=== PATIENT | female | born 1935 | race Caucasian/White ===

== ENCOUNTER 2017-06-27 11:42 | Inpatient (IN) | payer MEDICARE, MEDICAID ==
[~2017-06-27] VITALS: Ht 160 cm; Wt 90.3 kg
[2017-06-27 15:28] LABS: Basophils # (auto) 0.1 uL; Basophils % (auto) 0.6 % (0.0-2.0); Eosinophils # (auto) 0.2 uL; Eosinophils % (auto) 1.5 % (0.0-7.0); Hematocrit 41.9 % (36.0-46.0); Hemoglobin 13.8 g/dL (12.2-16.2); Lymphocytes % (auto) 14.5 % (10.0-50.0); Mean Corpuscular Hemoglobin 28.9 pg (28.0-32.0); Mean Corpuscular Hgb Conc. 32.9 g/dL (32.0-36.0); Mean Corpuscular Volume 87.8 fL (80.0-100.0); Monocytes # (auto) 0.9 uL; Monocytes % (auto) 6.8 % (0.0-12.0); Neutrophils # (auto) 10.3 uL; Neutrophils % (auto) 76.6 % (37.0-80.0); Nucleated Red Blood Cells % 0.2 %; Platelet Count (auto) 284 10^3/uL (140-450); Red Blood Cells 4.77 10^6/uL (4.0-5.20); Red Cell Distribution Width 15.2 % (11.8-14.3); White Blood Cell 13.5 10^3/uL (4.4-10.8)
[2017-06-27 15:41] LABS: BUN/Creatinine Ratio 16.8; Calcium 9.1 mg/dL (8.5-10.1); Potassium 4.6 mmol/L (3.5-5.1)
[2017-06-27] MEDS ORDERED: ENOXAPARIN SOD 100 MG/1 ML SYRINGE SC ONE (17:30)
[2017-06-27] MEDS ORDERED: ONDANSETRON HCL 4 MG/2 ML VIAL IV ONE (17:45)
[2017-06-27] MEDS ORDERED: MORPHINE SULFATE 4 MG/ML SYR/VIAL IV ONE (17:45)
[2017-06-27] MEDS ORDERED: XARELTO 20 MG PO SCH (18:00)
[2017-06-27] MEDS ORDERED: TEMAZEPAM 15 MG CAP PO PRN (18:45)
[2017-06-27] MEDS ORDERED: ACETAMINOPHEN 325 MG TAB PO PRN (18:45)
[2017-06-27] MEDS ORDERED: DOCUSATE SOD 100 MG CAP PO PRN (18:45)
[2017-06-27] MEDS ORDERED: DEXTROSE (50%) 50ML SYRG IV PRN (18:45)
[2017-06-27] MEDS ORDERED: ONDANSETRON HCL 4 MG/2 ML VIAL IV PRN (18:45)
[2017-06-27] MEDS: oxyCODONE ER 10 MG TAB PO SCH ×2 (18:46→19:50)
[2017-06-27 20:00] VITALS: BP 143/64
[2017-06-27] MEDS: ENOXAPARIN SOD 100 MG/1 ML SYRINGE SC SCH (21:45)
[2017-06-27] MEDS: MORPHINE SULFATE 4 MG/ML SYR/VIAL IV PRN (21:45)
[2017-06-27] MEDS: ASCORBIC ACID 500 MG TAB PO SCH (21:46)
[2017-06-27] MEDS: MEMANTINE HCL 5 MG TAB PO SCH (21:46)
[2017-06-27] MEDS: ATORVASTATIN 20 MG TAB PO SCH (21:46)
[2017-06-27] MEDS: FAMOTIDINE 20 MG TAB PO SCH (21:49)
[2017-06-27] MEDS ORDERED: ADVAIR DISKUS 250/50 IN SCH (22:00)
[2017-06-27 22:09] LABS: Urine Bacteria FEW /hpf (None Seen); Urine Blood Negative /uL (Negative); Urine Mucus FEW (None Seen); Urine WBC 3 /hpf (0 - 5)
[2017-06-27] MEDS: InsuLIN REG 1unit/0.01ml Soln (100units/ml) SC SCH (22:14)
[2017-06-27] MEDS: ACCU-CHEK COMFORT CURVE STRIP VI SCH (22:14)
[2017-06-27] MEDS: SODIUM CHLOR 0.9% PF (SALINE LOCK) 10ML VIAL IV SCH (22:15)
[2017-06-27] MEDS: IPRATROPIUM BROM 0.5 MG/2.5ML INH SOL NEB SCH (22:18)
[2017-06-27] MEDS: ALBUTEROL SULF 2.5 MG/0.5ML(0.5%) NEB SOLN NEB SCH (22:18)
[2017-06-27] MEDS: BUDESONIDE (INHALATION) 0.5 MG/2 ML NEB NEB SCH (22:19)
[2017-06-28] VITALS (7 sets, daily range): BP systolic 111–143; BP diastolic 48–84
[2017-06-28] MEDS: MORPHINE SULFATE 4 MG/ML SYR/VIAL IV PRN ×5 (01:49→19:48)
[2017-06-28] MEDS ORDERED: OXY10CRT PO (02:19)
[2017-06-28] MEDS ORDERED: TEMA30CA PO (02:27)
[2017-06-28] MEDS ORDERED: TIOTCAP IN (02:27)
[2017-06-28] MEDS ORDERED: MEMA10TA PO (02:27)
[2017-06-28] MEDS ORDERED: METO-169 PO (02:27)
[2017-06-28] MEDS ORDERED: SPIR25TA89 PO (02:27)
[2017-06-28] MEDS ORDERED: RIV20T PO (02:27)
[2017-06-28] MEDS ORDERED: ATOR10TA PO (02:27)
[2017-06-28] MEDS ORDERED: FLUT250M2 INH (02:27)
[2017-06-28] MEDS ORDERED: BENA10TA47 PO (02:27)
[2017-06-28] MEDS ORDERED: DOXE50CA57 PO (02:27)
[2017-06-28] MEDS ORDERED: OMEP20TA PO (02:27)
[2017-06-28] MEDS ORDERED: METF-370 PO (02:27)
[2017-06-28] MEDS: SODIUM CHLOR 0.9% PF (SALINE LOCK) 10ML VIAL IV SCH ×3 (05:54→22:11)
[2017-06-28] MEDS: InsuLIN REG 1unit/0.01ml Soln (100units/ml) SC SCH ×4 (06:46→22:00)
[2017-06-28] MEDS: ACCU-CHEK COMFORT CURVE STRIP VI SCH ×4 (06:47→22:13)
[2017-06-28] MEDS: ALBUTEROL SULF 2.5 MG/0.5ML(0.5%) NEB SOLN NEB SCH ×4 (06:50→19:32)
[2017-06-28] MEDS: IPRATROPIUM BROM 0.5 MG/2.5ML INH SOL NEB SCH ×3 (06:50→19:32)
[2017-06-28] MEDS: BUDESONIDE (INHALATION) 0.5 MG/2 ML NEB NEB SCH ×2 (06:51→22:58)
[2017-06-28 07:25] LABS: Basophils # (auto) 0.1 uL; Basophils % (auto) 0.6 % (0.0-2.0); Eosinophils # (auto) 0.2 uL; Eosinophils % (auto) 1.7 % (0.0-7.0); Hematocrit 41.7 % (36.0-46.0); Hemoglobin 13.8 g/dL (12.2-16.2); Lymphocytes # (auto) 1.4 uL; Lymphocytes % (auto) 14.1 % (10.0-50.0); Mean Corpuscular Hemoglobin 28.8 pg (28.0-32.0); Mean Corpuscular Volume 87.3 fL (80.0-100.0); Monocytes # (auto) 0.6 uL; Monocytes % (auto) 5.8 % (0.0-12.0); Neutrophils # (auto) 7.9 uL; Neutrophils % (auto) 77.8 % (37.0-80.0); Platelet Count (auto) 252 10^3/uL (140-450); Red Blood Cells 4.78 10^6/uL (4.0-5.20); Red Cell Distribution Width 14.7 % (11.8-14.3); White Blood Cell 10.1 10^3/uL (4.4-10.8)
[2017-06-28 07:45] LABS: Albumin 3.2 g/dL (3.4-5.0); BUN/Creatinine Ratio 25.7; Bilirubin, Total 0.7 mg/dL (0.2-1.0); Calcium 8.8 mg/dL (8.5-10.1); Potassium 4.2 mmol/L (3.5-5.1); Total Protein 7.6 g/dL (6.4-8.2)
[2017-06-28] MEDS: CYANOCOBALAMIN 500 MCG TAB PO SCH (09:51)
[2017-06-28] MEDS: ZINC SULFATE 220 MG CAP PO SCH (09:52)
[2017-06-28] MEDS: oxyCODONE ER 10 MG TAB PO SCH ×2 (09:55→22:13)
[2017-06-28] MEDS: ASCORBIC ACID 500 MG TAB PO SCH ×2 (09:55→22:12)
[2017-06-28] MEDS: SPIRONOLACTONE 25 MG TAB PO SCH (09:56)
[2017-06-28] MEDS: FAMOTIDINE 20 MG TAB PO SCH (09:56)
[2017-06-28] MEDS: MULTIPLE VITAMIN TAB PO SCH (09:56)
[2017-06-28] MEDS: METOPROLOL SUCCINATE XL 50 MG TAB PO SCH (09:57)
[2017-06-28] MEDS: MEMANTINE HCL 5 MG TAB PO SCH ×2 (09:57→22:12)
[2017-06-28] MEDS: BENAZEPRIL HCL 10 MG TAB PO SCH (09:58)
[2017-06-28] MEDS: HCTZ 25 MG TAB PO SCH (09:58)
[2017-06-28] MEDS: ENOXAPARIN SOD 100 MG/1 ML SYRINGE SC SCH ×2 (09:59→22:13)
[2017-06-28] MEDS ORDERED: SPIRIVA INHALER IN SCH (10:00)
[2017-06-28] MEDS ORDERED: DOXEPIN 50 MG PO SCH ×2 (10:00→22:00)
[2017-06-28] MEDS ORDERED: PANTOPRAZOLE 40 MG TAB PO SCH (10:00)
[2017-06-28] MEDS: ATORVASTATIN 20 MG TAB PO SCH (22:12)
[2017-06-29] MEDS: MORPHINE SULFATE 4 MG/ML SYR/VIAL IV PRN ×3 (01:02→11:49)
[2017-06-29 05:00] VITALS: BP 137/69
[2017-06-29] MEDS: SODIUM CHLOR 0.9% PF (SALINE LOCK) 10ML VIAL IV SCH (06:38)
[2017-06-29] MEDS: InsuLIN REG 1unit/0.01ml Soln (100units/ml) SC SCH ×2 (06:40→11:30)
[2017-06-29] MEDS: ACCU-CHEK COMFORT CURVE STRIP VI SCH ×2 (06:41→11:32)
[2017-06-29 07:09] LABS: Basophils # (auto) 0.1 uL; Basophils % (auto) 0.6 % (0.0-2.0); Eosinophils # (auto) 0.1 uL; Eosinophils % (auto) 1.3 % (0.0-7.0); Hematocrit 43.9 % (36.0-46.0); Hemoglobin 14.5 g/dL (12.2-16.2); Lymphocytes # (auto) 2.3 uL; Mean Corpuscular Hemoglobin 28.8 pg (28.0-32.0); Mean Corpuscular Volume 87.1 fL (80.0-100.0); Monocytes # (auto) 0.8 uL; Monocytes % (auto) 7.5 % (0.0-12.0); Neutrophils # (auto) 7.5 uL; Neutrophils % (auto) 69.6 % (37.0-80.0); Platelet Count (auto) 276 10^3/uL (140-450); Red Blood Cells 5.04 10^6/uL (4.0-5.20); Red Cell Distribution Width 14.8 % (11.8-14.3); White Blood Cell 10.8 10^3/uL (4.4-10.8)
[2017-06-29 07:33] LABS: Potassium 4.4 mmol/L (3.5-5.1)
[2017-06-29] MEDS: ALBUTEROL SULF 2.5 MG/0.5ML(0.5%) NEB SOLN NEB SCH ×3 (07:40→13:45)
[2017-06-29] MEDS: IPRATROPIUM BROM 0.5 MG/2.5ML INH SOL NEB SCH ×3 (07:40→13:45)
[2017-06-29 09:03] VITALS: BP 120/74
[2017-06-29] MEDS: BUDESONIDE (INHALATION) 0.5 MG/2 ML NEB NEB SCH (09:43)
[2017-06-29] MEDS ORDERED: FERROUS SULFATE 325 MG TAB PO SCH (10:00)
[2017-06-29] MEDS: BENAZEPRIL HCL 10 MG TAB PO SCH (10:00)
[2017-06-29] MEDS: HCTZ 25 MG TAB PO SCH (10:00)
[2017-06-29] MEDS ORDERED: FAMOTIDINE 20 MG TAB PO SCH (10:00)
[2017-06-29] MEDS: oxyCODONE ER 10 MG TAB PO SCH (10:15)
[2017-06-29] MEDS: ZINC SULFATE 220 MG CAP PO SCH (10:17)
[2017-06-29] MEDS: SPIRONOLACTONE 25 MG TAB PO SCH (10:18)
[2017-06-29] MEDS: MULTIPLE VITAMIN TAB PO SCH (10:20)
[2017-06-29] MEDS: CYANOCOBALAMIN 500 MCG TAB PO SCH (10:23)
[2017-06-29] MEDS: ASCORBIC ACID 500 MG TAB PO SCH (10:25)
[2017-06-29] MEDS: ENOXAPARIN SOD 100 MG/1 ML SYRINGE SC SCH (10:26)
[2017-06-29] MEDS: METOPROLOL SUCCINATE XL 50 MG TAB PO SCH (10:29)
[2017-06-29] MEDS: MEMANTINE HCL 5 MG TAB PO SCH (10:30)
[2017-06-29 12:15] VITALS: BP 119/72
== END 2017-06-29 15:30 | disposition home or self-care (01) | DRG 299 ==
LOC: ER 11:42 → OVERFLOW 11:43 → EAST 20:29
PROVIDERS: ADMIT Internal Medicine; ATTEND Internal Medicine
DX: I82.449 Acute embolism and thrombosis of unspecified tibial vein (principal); N17.0 Acute kidney failure with tubular necrosis; I13.0 Hypertensive heart and chronic kidney disease with heart failure and stage 1 through stage 4 chronic kidney disease, or unspecified chronic kidney disease; J96.11 Chronic respiratory failure with hypoxia; E87.1 Hypo-osmolality and hyponatremia; I50.9 Heart failure, unspecified; J44.9 Chronic obstructive pulmonary disease, unspecified; N18.3 Chronic kidney disease, stage 3 (moderate); E11.21 Type 2 diabetes mellitus with diabetic nephropathy; E11.22 Type 2 diabetes mellitus with diabetic chronic kidney disease; F03.90 Unspecified dementia, unspecified severity, without behavioral disturbance, psychotic disturbance, mood disturbance, and anxiety; I48.91 Unspecified atrial fibrillation; Z79.01 Long term (current) use of anticoagulants; Z83.3 Family history of diabetes mellitus; Z90.710 Acquired absence of both cervix and uterus; M19.90 Unspecified osteoarthritis, unspecified site; Z88.8 Allergy status to other drugs, medicaments and biological substances; Z88.0 Allergy status to penicillin; Z88.2 Allergy status to sulfonamides; Z90.49 Acquired absence of other specified parts of digestive tract; Z98.49 Cataract extraction status, unspecified eye
CPT/HCPCS: 36415; 80048; 80053; 81001; 82962; 83036; 84443; 85025; 85379; 93005; 93971; 94640; 96372; 96374; 96375; J1815; J2405

== ENCOUNTER → 2019-09-12 | Emergency (ER) | payer MEDICARE, MEDICAID ==
[~2019-09-12] VITALS: Ht 162.6 cm; Wt 86.2 kg
[~2019-09-12] MED LIST: ATOR10TA PO; BENA10TA47 PO; DOXE50CA57 PO; FLEET MINERAL OIL ENEMA 133 ML PR ONE; FLUT250M2 INH; HYDROmorphone HCL 2 MG/ML VL IV ONE; MEMA10TA PO; METF-370 PO; METO-169 PO; OMEP20TA PO; OXY10CRT PO; POTASSIUM EFFERVESENT TAB 25 MEQ PO ONE; PROMETHAZINE HCL 25 MG/ML 1ML IV PRN; SODIUM CHLORIDE 0.9% 1,000 ML IV ONE; SODIUM CHLORIDE 0.9% 500 ML IVB ONE; SPIR25TA8 PO; TEMA30CA PO; TIOTCAP IN
[2019-09-12 14:48] LABS: Basophils # (auto) 0 10 ^3/uL (0-0.2); Basophils % (auto) 0.2 % (0.0-2.0); Eosinophils # (auto) 0 10 ^3/uL (0-0.8); Eosinophils % (auto) 0.2 % (0.0-7.0); Hematocrit 41.3 % (36.0-46.0); Hemoglobin 13.3 g/dL (12.2-16.2); Lymphocytes # (auto) 1.8 10 ^3/uL (0.4-5.4); Lymphocytes % (auto) 7.3 % (10.0-50.0); Mean Corpuscular Hgb Conc. 32.2 g/dL (32.0-36.0); Monocytes # (auto) 1.5 10 ^3/uL (0-1.3); Neutrophils # (auto) 20.8 10 ^3/uL (1.6-8.6); Neutrophils % (auto) 86.3 % (37.0-80.0); Platelet Count (auto) 256 10^3/uL (140-450); Red Blood Cells 4.44 10^6/uL (4.0-5.20); Red Cell Distribution Width 14.4 % (11.8-14.3); White Blood Cell 24.1 10^3/uL (4.4-10.8)
[2019-09-12 15:00] LABS: INR 1.07 (0.9-1.15); Partial Thromboplastin Time 27.2 sec (23.64-32.05)
[2019-09-12 15:05] LABS: Albumin 2.9 g/dL (3.4-5.0); Calcium 7.8 mg/dL (8.5-10.1); Magnesium 2.7 mg/dL (1.6-2.6); Potassium 3.2 mmol/L (3.5-5.1)
[2019-09-12 15:10] LABS: BUN/Creatinine Ratio 30.6; Bilirubin, Total 0.4 mg/dL (0.2-1.0); Total Protein 6.3 g/dL (6.4-8.2)
[2019-09-12 18:22] VITALS: BP 117/67
== END | disposition home or self-care (01) ==
LOC: EDUNIT# 11:59 → EDBD 12:10 → ER 12:10
DX: K46.9 Unspecified abdominal hernia without obstruction or gangrene (principal); E87.6 Hypokalemia; K27.5 Chronic or unspecified peptic ulcer, site unspecified, with perforation; E44.0 Moderate protein-calorie malnutrition; E66.01 Morbid (severe) obesity due to excess calories; E11.9 Type 2 diabetes mellitus without complications; I11.0 Hypertensive heart disease with heart failure; I50.9 Heart failure, unspecified; J44.9 Chronic obstructive pulmonary disease, unspecified; Z68.32 Body mass index [BMI] 32.0-32.9, adult; Z90.49 Acquired absence of other specified parts of digestive tract; Z90.710 Acquired absence of both cervix and uterus; Z79.899 Other long term (current) drug therapy; Z88.0 Allergy status to penicillin; Z88.8 Allergy status to other drugs, medicaments and biological substances; Z88.2 Allergy status to sulfonamides
CPT/HCPCS: 36415; 71045; 74176; 80053; 83690; 83735; 84443; 84484; 85025; 85610; 85730; 93005; 96361; 96374; 96375; 99285; J1170; J2550; J7030; J7040